=== PATIENT | male | born 1985 | race Caucasian/White ===

== ENCOUNTER 2016-05-26 18:21 | Emergency (ER) | payer SELFPAY ==
[~2016-05-26] VITALS: Ht 167.6 cm; Wt 62.0 kg
[2016-05-26 18:42] VITALS: Ht 167.6 cm; Wt 62.0 kg
[2016-05-26] MEDS ORDERED: ACETAMINOPHEN 500 MG TAB PO STA (19:36)
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
[2016-05-26] MEDS ORDERED: NAPR-260 PO (20:55)
[2016-05-26] MEDS ORDERED: CYCL-319 PO (20:55)
[2016-05-26] MEDS ORDERED: ACET500C5 PO (20:55)
[2016-05-26 21:00] VITALS: BP 126/60; PULSE 65; RESP 20; TEMP 98.4
== END 2016-05-26 21:06 | disposition home or self-care (01) ==
LOC: FTE 18:21
DX: S19.9XXA Unspecified injury of neck, initial encounter (principal); S29.001A Unspecified injury of muscle and tendon of front wall of thorax, initial encounter; S09.90XA Unspecified injury of head, initial encounter; J45.909 Unspecified asthma, uncomplicated; V49.40XA Driver injured in collision with unspecified motor vehicles in traffic accident, initial encounter
CPT/HCPCS: 71010; 72040